=== PATIENT | female | born 1975 | race African-American/Black ===

== ENCOUNTER 2017-04-18 06:01 | Emergency (ER) | payer OTHER ==
[~2017-04-18] VITALS: Ht 160 cm; Wt 72.6 kg
== END 2017-04-18 08:32 | disposition short-term general hospital (02) ==
LOC: ER 06:01
DX: I10 Essential (primary) hypertension (principal)
CPT/HCPCS: 93005; 99282

== ENCOUNTER 2017-05-20 20:21 | Emergency (ER) | payer SELFPAY ==
[~2017-05-20] VITALS: Ht 157.5 cm; Wt 54.4 kg
[2017-05-20] MEDS ORDERED: METOPROLOL TART50 MG PO (20:32)
[2017-05-20] MEDS ORDERED: LISINOPRIL10 MG PO (20:32)
[2017-05-20] MEDS ORDERED: KETOROLAC TROMETHAMINE 60 MG/2 ML VIAL IM ONE (20:45)
[2017-05-20] MEDS ORDERED: CLINDAMYCIN PHOS 600 MG/ 4 ML VIAL IM ONE (20:45)
[2017-05-20 20:49] VITALS: BP 183/105
== END 2017-05-20 20:50 | disposition home or self-care (01) ==
LOC: FSED 20:21
DX: L02.31 Cutaneous abscess of buttock (principal); I10 Essential (primary) hypertension
CPT/HCPCS: 96372; 99282